=== PATIENT | female | born 1955 | race Caucasian/White ===

== ENCOUNTER → 2018-08-05 | Outpatient (CLI) | payer OTHER ==
--- NOTE | 2018-08-05 18:27 | Diagnostic Imaging Report ---
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 The patient has had increasing size of a left neck lump. The patient is also noted increasing left chest wall swelling with associated left chest wall varicose veins. Comparison: None. Findings: Limited ultrasound of the left neck demonstrates an enlarged tubular homogeneous structure which bifurcates in the neck. A normal-appearing left internal jugular vein is not visualized. The structure demonstrates multiple areas of internal flow, although the majority appears thrombosed. The structure courses into the left subclavian vein which demonstrates no flow at the confluence. Multiple small superficial collateral veins are noted in the left neck. Flow is demonstrated in the left common carotid artery. Impression: Enlarged tubular structure which bifurcates in the left neck and demonstrates multiple areas of internal flow and associated superficial collateral veins. Given the reported history of untreated left IJ thrombus and increasing left chest wall collateral veins, the findings could represent partially thrombosed left neck veins. However, the multiple areas of internal flow is somewhat atypical. Malignancy is not excluded by the sonographic appearance. A CT venogram of the neck and chest is suggested for further evaluation. The patient was scanned by the interpreting radiologist, and the findings were discussed with the patient at her request on 08/05/2018 at 6:10 PM. She will follow-up with the referring physician. Signed by: Dr. Mary Hernadez MD on 08/05/2018 6:23 PM
== END ==
LOC: US 16:22
PROVIDERS: ATTEND Family Medicine
DX: R22.1 Localized swelling, mass and lump, neck (principal)
CPT/HCPCS: 76536